=== PATIENT | female | born 1995 | race Caucasian/White ===

== ENCOUNTER 2025-01-05 01:44 | Emergency (ER) ==
[~2025-01-05] VITALS: Ht 154.9 cm; Wt 68.8 kg
[2025-01-05 01:48] VITALS: BP 115/75; TEMP 97.2; O2SAT 100
[2025-01-05] MEDS ORDERED: PRENTAB9 PO (02:22)
[2025-01-05] MEDS ORDERED: ACET500P3 PO (02:22)
[2025-01-05] MEDS ORDERED: ACET-897 PO (02:22)
[2025-01-05] MEDS ORDERED: UNIS25TA3 PO (02:22)
[2025-01-05] MEDS ORDERED: FAMO20TA PO (02:22)
[2025-01-05] MEDS ORDERED: CETI5TAB2 PO (02:22)
== END 2025-01-05 01:53 | disposition admitted as inpatient to this hospital (09) ==
LOC: M ED 01:44
DX: Z53.21 Procedure and treatment not carried out due to patient leaving prior to being seen by health care provider (principal)

== ENCOUNTER 2025-01-05 01:54 | Outpatient (CLI) | payer OTHER ==
[~2025-01-05] VITALS: Ht 152.4 cm; Wt 69.8 kg
[2025-01-05 02:12] VITALS: BP 112/78
[2025-01-05] MEDS ORDERED: FAMO20TA PO (02:22)
[2025-01-05] MEDS ORDERED: ACET-897 PO (02:22)
[2025-01-05] MEDS ORDERED: CETI5TAB2 PO (02:22)
[2025-01-05] MEDS ORDERED: ACET500P3 PO (02:22)
[2025-01-05] MEDS ORDERED: PRENTAB9 PO (02:22)
[2025-01-05] MEDS ORDERED: UNIS25TA3 PO (02:22)
== END 2025-01-05 02:38 | disposition home or self-care (01) ==
LOC: M LDO 01:54
PROVIDERS: ATTEND Obstetrics & Gynecology
DX: O36.8330 Maternal care for abnormalities of the fetal heart rate or rhythm, third trimester, not applicable or unspecified (principal); Z3A.37 37 weeks gestation of pregnancy
CPT/HCPCS: 59025; G0463